=== PATIENT | female | born 1975 | race Caucasian/White ===

== ENCOUNTER 2021-02-16 13:07 | Emergency (ER) | payer MEDICAID ==
[~2021-02-16] VITALS: Ht 167.6 cm; Wt 49.9 kg
[2021-02-16] MEDS ORDERED: CELEXA 10 MG TA10 M1 PO (13:22)
[2021-02-16] MEDS ORDERED: ADDERALL 10 MG10 MG PO (13:22)
[2021-02-16] MEDS ORDERED: CLONAZEPAM0.5 MG PO (13:22)
[2021-02-16 13:50] LABS: ABSOLUTE BASOPHILS 0.1 thou/uL (0.0-0.2); ABSOLUTE EOSINOPHILS 0.3 thou/uL (0.0-0.7); ABSOLUTE LYMPHOCYTES 1.7 thou/uL (0.8-5.3); ABSOLUTE MONOCYTES 0.5 thou/uL (0.0-1.2); BASOPHILS 0.8 %; EOSINOPHILS 2.3 %; HEMATOCRIT 39.6 % (37.0-47.0); HEMOGLOBIN 13.4 gm/dL (12.0-15.0); LYMPHOCYTES 14.7 %; MCH 34.1 pg (26.0-34.0); MCHC 33.9 g/dL (28.0-37.0); MCV 100.6 fL (80.0-100.0); MPV 8.5 fl. (7.2-11.1); NUCLEATED RBCS 0 /100WBC; PLATELET COUNT* 286 thou/uL (150-400); POLYS 78.2 %; RBC 3.94 mil/uL (4.20-5.00); RDW-CV 13.8 % (10.5-14.5); WBC 11.5 thou/uL (4.0-11.0)
[2021-02-16 13:57] LABS: CALCIUM 8.7 mg/dL (8.5-10.1); CREATININE 0.7 mg/dL (0.6-1.3)
[2021-02-16 14:02] LABS: ALBUMIN 4.2 g/dL (3.4-5.0); TOTAL BILIRUBIN 0.6 mg/dL (<0.1-1.0); TOTAL PROTEIN 7.7 g/dL (6.4-8.2)
[2021-02-16 15:04] LABS: BE -3.3 mmol/L (-2 to +3); PCO2 VENOUS 48.8 mmHg (41.0-51.0); PO2 VENOUS 30.2 mmHg (35.0-45.0)
[2021-02-16 15:05] LABS: URINE BILIRUBIN NEGATIVE (Negative); URINE BLOOD 1+ (Negative); URINE CLARITY CLEAR; URINE COLOR YELLOW; URINE GLUCOSE-RANDOM NEGATIVE (Negative); URINE KETONES NEGATIVE (Negative); URINE LEUKOCYTES-REFLEX NEGATIVE (Negative); URINE NITRITE-REFLEX NEGATIVE (Negative); URINE PROTEIN NEGATIVE (Negative); URINE SPECIFIC GRAVITY <= 1.005 (1.005-1.030); URINE UROBILINOGEN 0.2 E.U./dl (0.2-1.0)
[2021-02-16 15:16] LABS: BACTERIA-REFLEX 1-9 Few /HPF (None Seen); CASTS None Seen /LPF (None Seen); CRYSTALS None Seen /LPF (None Seen); SQUAMOUS 0-3 Few /LPF (0-3); URINE RBC 3-10 Few /HPF (0-2); URINE WBC-REFLEX None Seen /HPF (0-5)
[2021-02-16] MEDS ORDERED: PHENERGAN 25 MG25 M1 PO (15:20)
[2021-02-16] MEDS ORDERED: BUTALB-APAP-CA1 EACH PO (15:20)
[2021-02-16] MEDS ORDERED: FLEXERIL PO (15:20)
[2021-02-16] MEDS ORDERED: PENICILLIN V P500 MG PO (15:27)
[2021-02-16 15:45] VITALS: BP 116/79
== END 2021-02-16 15:46 | disposition home or self-care (01) ==
LOC: M.ERS 13:07
PROVIDERS: Nurse Practitioner Family
DX: K08.89 Other specified disorders of teeth and supporting structures (principal); R51.9 Headache, unspecified; E86.0 Dehydration; Z88.2 Allergy status to sulfonamides

== ENCOUNTER 2021-03-06 21:10 | Emergency (ER) | payer MEDICAID ==
[~2021-03-06] VITALS: Ht 167.6 cm; Wt 49.9 kg
[~2021-03-06 21:10] MED LIST: ADDERALL 10 MG10 MG PO; BUTALB-APAP-CA1 EACH PO; CELEXA 10 MG TA10 M1 PO; CLONAZEPAM0.5 MG PO; FLEXERIL PO; PENICILLIN V P500 MG PO; PHENERGAN 25 MG25 M1 PO
[2021-03-06] MEDS ORDERED: MEDROLDOSEPACK PO (22:05)
[2021-03-06] MEDS ORDERED: FLEXERIL PO (22:05)
[2021-03-06 22:30] VITALS: BP 110/60
== END 2021-03-06 22:30 | disposition home or self-care (01) ==
LOC: M.ERS 21:10
DX: M54.6 Pain in thoracic spine (principal); Z88.2 Allergy status to sulfonamides

== ENCOUNTER 2021-04-10 17:17 | Emergency (ER) | payer MEDICAID ==
[~2021-04-10] VITALS: Ht 167.6 cm; Wt 49.4 kg
[~2021-04-10 17:17] MED LIST changes: +MEDROLDOSEPACK PO
[2021-04-10 17:23] VITALS: BP 109/74
[2021-04-10] MEDS ORDERED: ADVIL200 M3 PO (17:28)
[2021-04-10] MEDS ORDERED: FLEXERIL PO (18:19)
[2021-04-10] MEDS ORDERED: TRAMADOL 50 MG50 MG PO (18:19)
== END 2021-04-10 18:27 | disposition home or self-care (01) ==
LOC: M.ERS 17:17
DX: S39.011A Strain of muscle, fascia and tendon of abdomen, initial encounter (principal); Z88.2 Allergy status to sulfonamides; X58.XXXA Exposure to other specified factors, initial encounter; Y93.89 Activity, other specified; Y92.89 Other specified places as the place of occurrence of the external cause; Y99.8 Other external cause status

== ENCOUNTER 2021-05-30 01:47 | Emergency (ER) | payer MEDICAID ==
[~2021-05-30] VITALS: Ht 167.6 cm; Wt 52.2 kg
[~2021-05-30 01:47] MED LIST changes: +ADVIL200 M3 PO; +TRAMADOL 50 MG50 MG PO
[2021-05-30] MEDS ORDERED: TRAMADOL 50 MG50 MG PO (02:58)
[2021-05-30] MEDS ORDERED: FLEXERIL PO (02:58)
[2021-05-30 03:42] VITALS: BP 118/66
== END 2021-05-30 03:43 | disposition home or self-care (01) ==
LOC: M.ERS 01:47
DX: M54.6 Pain in thoracic spine (principal); F90.9 Attention-deficit hyperactivity disorder, unspecified type; F32.9 Major depressive disorder, single episode, unspecified; F41.9 Anxiety disorder, unspecified; Z79.899 Other long term (current) drug therapy; Z88.2 Allergy status to sulfonamides

== ENCOUNTER 2021-06-01 12:18 | Emergency (ER) | payer MEDICAID ==
[~2021-06-01] VITALS: Ht 167.6 cm; Wt 52.2 kg
[2021-06-01] MEDS ORDERED: VENTOLIN HFA 1818 GM INH (13:27)
[2021-06-01] MEDS ORDERED: FLEXERIL PO (13:27)
[2021-06-01 13:31] LABS: URINE BILIRUBIN NEGATIVE (Negative); URINE BLOOD NEGATIVE (Negative); URINE CLARITY CLEAR; URINE COLOR YELLOW; URINE GLUCOSE-RANDOM NEGATIVE (Negative); URINE KETONES NEGATIVE (Negative); URINE LEUKOCYTES-REFLEX NEGATIVE (Negative); URINE NITRITE-REFLEX NEGATIVE (Negative); URINE PROTEIN NEGATIVE (Negative); URINE SPECIFIC GRAVITY <= 1.005 (1.005-1.030); URINE UROBILINOGEN 0.2 E.U./dl (0.2-1.0)
[2021-06-01 13:44] VITALS: BP 99/72
== END 2021-06-01 13:45 | disposition home or self-care (01) ==
LOC: M.ERS 12:18
PROVIDERS: Nurse Practitioner Family
DX: U07.1 COVID-19 (principal); F41.9 Anxiety disorder, unspecified; F32.9 Major depressive disorder, single episode, unspecified; Z79.891 Long term (current) use of opiate analgesic; Z79.899 Other long term (current) drug therapy; Z79.1 Long term (current) use of non-steroidal anti-inflammatories (NSAID); Z88.2 Allergy status to sulfonamides

== ENCOUNTER 2021-08-06 19:57 | Emergency (ER) | payer MEDICAID ==
[~2021-08-06] VITALS: Ht 167.6 cm; Wt 53.5 kg
[~2021-08-06 19:57] MED LIST changes: +VENTOLIN HFA 1818 GM INH
[2021-08-06] MEDS ORDERED: LEXAPRO5 MG PO (20:25)
[2021-08-06] MEDS ORDERED: HYDROCODON-ACE1 EAC7 PO (20:26)
[2021-08-06] MEDS ORDERED: DOXEPIN 10 MG C10 MG PO (20:26)
[2021-08-06] MEDS ORDERED: KLONOPIN1 MG PO (21:06)
[2021-08-06 21:17] VITALS: BP 127/82
== END 2021-08-06 21:17 | disposition home or self-care (01) ==
LOC: M.ERS 19:57
DX: F41.9 Anxiety disorder, unspecified (principal); F90.9 Attention-deficit hyperactivity disorder, unspecified type; F32.9 Major depressive disorder, single episode, unspecified; F17.210 Nicotine dependence, cigarettes, uncomplicated; Z79.899 Other long term (current) drug therapy; Z88.2 Allergy status to sulfonamides

== ENCOUNTER 2021-08-30 19:07 | Emergency (ER) | payer MEDICAID ==
[~2021-08-30 19:07] MED LIST changes: +DOXEPIN 10 MG C10 MG PO; +HYDROCODON-ACE1 EAC7 PO; +KLONOPIN1 MG PO; +LEXAPRO5 MG PO
== END 2021-08-30 20:34 | disposition left against medical advice (07) ==
LOC: M.ERS 19:07
DX: F41.9 Anxiety disorder, unspecified (principal); Z53.21 Procedure and treatment not carried out due to patient leaving prior to being seen by health care provider

== ENCOUNTER 2021-09-01 16:15 | Emergency (ER) | payer MEDICAID ==
[~2021-09-01] VITALS: Ht 167.6 cm; Wt 53.5 kg
[2021-09-01] MEDS ORDERED: VISTARIL 25 MG25 M1 PO (16:56)
[2021-09-01 17:17] VITALS: BP 127/77
== END 2021-09-01 17:18 | disposition home or self-care (01) ==
LOC: M.ERS 16:15
DX: F41.9 Anxiety disorder, unspecified (principal); Z76.0 Encounter for issue of repeat prescription; F32.9 Major depressive disorder, single episode, unspecified; F17.210 Nicotine dependence, cigarettes, uncomplicated; Z79.899 Other long term (current) drug therapy; Z79.891 Long term (current) use of opiate analgesic; Z88.2 Allergy status to sulfonamides